=== PATIENT | female | born 1995 | race Caucasian/White ===

== ENCOUNTER 2016-09-15 12:47 | Emergency (ER) | payer MEDICAID ==
[~2016-09-15] VITALS: Ht 157.5 cm; Wt 61.2 kg
--- NOTE | 2016-09-15 13:37 | ED GU-Female ---
General Chief Complaint: Abdominal/GI Problems Stated Complaint: LOWER ABD PAIN Nursing Triage Note: ARRIVED VIA AMB TO ROOM 09. COMPLAINS OF RLQ PAIN STARTING YESTERDAY THAT IS NOW MORE IN THE LLQ. STATES SHE STARTED HER PERIOD A WEEK EARLY AND IT IS DARKER WITH MANY CLOTS. Nursing Sepsis Screen: No Definite Risk Source: patient Exam Limitations: no limitations History of Present Illness Time seen by provider: 13:09 Initial Comments With report of bilateral lower quadrant abdominal pain associated with vaginal bleeding. It is on both sides and currently left is greater than right. States that she does have history of ovarian cysts. Denies vaginal discharge. Unsure if she is . States that her period is different than normal and she has increasing blood clots. Denies dysuria. Reports history of constipation. Timing/Duration: yesterday, getting worse Severity/Quality: moderate, aching Location: RLQ, LLQ, suprapubic Radiation: none Activities at Onset: none Sexual [place] History: less than 2 months ago, single partner Modifying Factors: Worsens With Movement Associated Symptoms: No dysuria, No fever/chills, No lower back pain, No nausea /vomiting, No urinary frequency Allergies and Home Medications Allergies Coded Allergies: No Known Drug Allergies (Unverified , 01/08/16) Home Medications No Active Prescriptions or Reported Meds Constitutional: see HPI, No chills, No fever EENTM: no symptoms reported Cardiovascular: no symptoms reported Gastrointestinal: see HPI, abdominal pain, No nausea, No vomiting Genitourinary: see HPI : No LMP: September 14, 2016 Musculoskeletal: no symptoms reported All Other Systemes Reviewed Negative Unless Noted: Yes Past Vcfxupc-Mnwnjb-Ncvksh Hx Patient Social History Alcohol Use: Denies Use Recreational Drug Use: No Smoking Status: Never a Smoker Recent Foreign Travel: No Contact w/Someone Who Travel: No Recent Infectious Disease Expo: No Recent Hopitalizations: No Seasonal Allergies Seasonal Allergies: No Surgeries HX Surgeries: Yes Surgeries: Orthopedic Respiratory Hx Respiratory Disorders: No Cardiovascular Hx Cardiac Disorders: No Neurological Hx Neurological Disorders: No Reproductive System Hx : 1 Hx Para: 1 Hx Reproductive Disorders: No HIV/AIDS: Yes Female Reproductive Disorders: Ovarian Cyst Genitourinary Hx Genitourinary Disorders: No Gastrointestinal Hx Gastrointestinal Disorders: No Musculoskeletal Hx Musculoskeletal Disorders: No Endocrine Hx Endocrine Disorders: No HEENT HX ENT Disorders: No Cancer Hx Cancer: No Psychosocial Hx Psychiatric Problems: No Reviewed Nursing Assessment Reviewed/Agree w Nursing PMH: Yes Family Medical History Significant Family History: No Pertinent Family Hx Physical Exam Vital Signs Vital Sign - Last 12Hours 09/15/16 12:50 Temp 98.0 Pulse 88 Resp 16 B/P (MAP) 115/83 Pulse Ox 98 Capillary Refill : Less Than 3 Seconds General Appearance: WD/WN, no apparent distress HEENT: PERRL/EOMI, pharynx normal Neck: full range of motion, supple Cardiovascular: regular rate, rhythm, no murmur Respiratory: lungs clear, normal breath sounds Gastrointestinal: soft, tenderness (mild tenderness in the suprapubic and bilateral lower quadrant in the very low pelvis area) Pelvic: normal external exam, normal adnexa, no cerv. motion tender, no masses , vaginal bleeding Back: normal inspection, no CVA tenderness, no vertebral tenderness Extremities: non-tender, normal inspection Neurologic/Psychiatric: alert, oriented x 3 Progress/Results/Core Measures Results/Orders Lab Results Laboratory Tests Test 09/15/16 13:00 09/15/16 13:30 Range/Units Urine Color RED H Urine Clarity BLOODY H Urine pH 6.5 5-9 Urine Specific [place] 1.010 L 1.016-1.022 Urine Protein 3+ H NEGATIVE Urine Glucose (UA) NEGATIVE NEGATIVE Urine Ketones NEGATIVE NEGATIVE Urine Nitrite NEGATIVE NEGATIVE Urine Bilirubin NEGATIVE NEGATIVE Urine Urobilinogen NORMAL NORMAL MG/DL Urine Leukocyte Esterase 2+ H NEGATIVE Urine RBC (Auto) 5+ H NEGATIVE Urine RBC TNTC H /HPF Urine WBC 5-10 H /HPF Urine Crystals NONE /LPF Urine Bacteria TRACE /HPF Urine Casts NONE /LPF Urine Mucus NEGATIVE /LPF Urine Culture Indicated YES Micro Results Microbiology 09/15/16 Genital Culture, Resulted Pending 09/15/16 Wet Prep - Final, Resulted My Orders Orders - BEE MANJARREZ MD Wet Prep (09/15/16 13:22) Neisseria Gonorrhea Dna (09/15/16 13:22) Chlamydia Dna (09/15/16 13:22) Genital Culture (09/15/16 13:22) Urine Bedside (09/15/16 13:22) Us Non Ob Pelvis Comp/Transvag (09/15/16 13:22) Ua Culture If Indicated (09/15/16 15:48) Acetaminophen Tablet (Tylenol Tablet) (09/15/16 15:54) Ibuprofen Tablet (Motrin Tablet) (09/15/16 15:54) Urine Culture (09/15/16 13:00) Vital Signs/I&O Vital Sign - Last 12Hours 09/15/16 12:50 Temp 98.0 Pulse 88 Resp 16 B/P (MAP) 115/83 Pulse Ox 98 Blood Pressure Mean: 94 Point of Care Testing Urine -Bedside: Negative Progress Note : Progress Note Seen and evaluated. Pelvic exam, UA, UCG and ultrasound pelvis ordered. Patient does have vaginal bleeding. is negative. Pending ultrasound results and wet prep. Ultrasound is negative. UA pending. Ibuprofen 800 mg by mouth and Tylenol 1 g by mouth given for pain. No significant findings on ultrasound. UA does show question of urinary tract infection and we will initiate outpatient therapy. Discharged home with return precautions. Patient verbalize understanding instructions and agreement with plan. Diagnostic Imaging Diagonstic Imaging: Ultrasound Plain Films/CT/US/NM/MRI: pelvis Comments VIA [place], [place] NAME: LETICIA CASTRO [facility] REC#: [id number] PT STATUS: REG ER : 1995 PHYSICIAN: BEE MANJARREZ MD ADMIT DATE: 09/15/16/ER Draft Date of Exam:09/15/16 US NON OB PELVIS COMP/TRANSVAG EXAMINATION: Transabdominal and transvaginal pelvic ultrasound. INDICATION: Pelvic pain. FINDINGS: The uterus is 8 x 5.6 x 3.7 cm. The myometrium is fairly homogeneous with no focal lesion identified. The endometrial stripe is 0.4 cm in caliber. The right ovary is 2.7 x 2.6 x 3 cm. The left ovary is 3.7 x 3 x 2.9 cm. Arterial waveforms are seen over the left ovary and, over the right ovary, Color Doppler is seen. No waveform interrogation was performed of the right ovary. There is no fluid collection or free fluid seen. IMPRESSION: Unremarkable exam. Dictated on workstation # [id number] Dict: 09/15/16 1450 Trans: 09/15/16 1456 [id number] Interpreted by: QUENTIN ROJAS MD Electronically signed by: Departure Impression Impression: Primary Impression: Menorrhalgia Additional Impression: Urinary tract infection Qualified Codes: N30.01 - Acute cystitis with hematuria Disposition: HOME, SELF-CARE Condition: Improved Departure-Patient Inst. Decision time for Depature: 16:11 Referrals: NO,LOCAL PHYSICIAN (PCP/Family) Primary Care Physician Patient Instructions: Acute Pelvic Pain (DC), Urinary Tract Infection, Adult ( DC) Add. Discharge Instructions: All discharge instructions reviewed with patient and/or family. Voiced understanding. You may take ibuprofen 600 mg every 8 hours as needed for pain. You may take Tylenol 1000 mg every 8 hours as needed for pain. You may purchase these both [id number]. Drink plenty of fluids. Take other medications as directed. Follow-up with your Dr. in a few days for recheck. Return for worse pain, vomiting, weakness, increasing vaginal bleeding or other concerns as needed. Scripts Ciprofloxacin HCl (Ciprofloxacin HCl) 500 Mg Tablet 500 MG PO BID, #6 TAB Prov: BEE MANJARREZ MD 09/15/16 BEE MANJARREZ MD September 15, 2016 13:37
--- NOTE | 2016-09-15 14:56 | Diagnostic Imaging Report ---
EXAMINATION: Transabdominal and transvaginal pelvic ultrasound. INDICATION: Pelvic pain. FINDINGS: The uterus is 8 x 5.6 x 3.7 cm. The myometrium is fairly homogeneous with no focal lesion identified. The endometrial stripe is 0.4 cm in caliber. The right ovary is 2.7 x 2.6 x 3 cm. The left ovary is 3.7 x 3 x 2.9 cm. Arterial waveforms are seen over the left ovary and, over the right ovary, Color Doppler is seen. No waveform interrogation was performed of the right ovary. There is no fluid collection or free fluid seen. IMPRESSION: Unremarkable exam. Dictated by: Dictated on workstation # [id number]
[2016-09-15 15:52] LABS: BILIRUBIN,URINE NEGATIVE (NEGATIVE); KETONES,URINE NEGATIVE (NEGATIVE); LEUKOCYTE ESTERASE ,URINE 2+ (NEGATIVE); NITRITE,URINE NEGATIVE (NEGATIVE); PH,URINE 6.5 (5-9); PROTEIN,URINE 3+ (NEGATIVE); UROBILINOGEN,URINE NORMAL (NORMAL)
[2016-09-15] MEDS ORDERED: IBUPROFEN 800 MG (MOTRIN) TAB PO STA (15:54)
[2016-09-15] MEDS ORDERED: ACETAMINOPHEN 500 MG TAB (TYLENOL) PO STA (15:54)
[2016-09-15] MEDS ORDERED: CIPR500T4 PO (16:12)
[2016-09-15 16:15] VITALS: BP 122/72
== END 2016-09-15 16:15 | disposition home or self-care (01) ==
LOC: EDUNIT# 12:47 → ER 12:49
DX: N92.0 Excessive and frequent menstruation with regular cycle (principal); N39.0 Urinary tract infection, site not specified
CPT/HCPCS: 36415; 76830; 76856; 81000; 84703; 87070; 87088; 87210; 87491; 87591; 99284